=== PATIENT | male | born 1970 | race African-American/Black ===

== ENCOUNTER 2016-10-19 16:16 | Emergency (ER) | payer MEDICAID ==
[~2016-10-19] VITALS: Ht 195.6 cm; Wt 149.7 kg
[2016-10-19 17:30] LABS: Basophils # (auto) 0.1 uL; Basophils % (auto) 1.5 % (0.0-2.0); CONDITION Y; Eosinophils # (auto) 0.1 uL; Eosinophils % (auto) 1.6 % (0.0-7.0); Hematocrit 43.6 % (41.0-53.0); Hemoglobin 14.4 g/dL (13.5-17.5); Lymphocytes # (auto) 2.5 uL; Lymphocytes % (auto) 38.3 % (10.0-50.0); Mean Corpuscular Hemoglobin 29.7 pg (28.0-32.0); Mean Corpuscular Hgb Conc. 33.1 g/dL (32.0-36.0); Mean Corpuscular Volume 89.8 fL (80.0-100.0); Mean Platelet Volume 7.5 fL (7.4-10.4); Monocytes # (auto) 0.4 uL; Monocytes % (auto) 5.9 % (0.0-12.0); Neutrophils # (auto) 3.4 uL; Neutrophils % (auto) 52.7 % (37.0-80.0); Platelet Count (auto) 370 10^3/uL (140-450); Red Cell Distribution Width 16.6 % (11.6-16.0); White Blood Cell 6.5 10^3/uL (4.4-10.8)
[2016-10-19 17:52] LABS: Anion Gap 8 (5-15); Blood Urea Nitrogen 4 mg/dL (7-18); Carbon Dioxide 24 mmol/L (21-32); Chloride 105 mmol/L (98-107); Glucose 197 mg/dL (74-106); Potassium 3.7 mmol/L (3.5-5.1); Sodium 137 mmol/L (136-145)
[2016-10-19 17:53] LABS: Albumin 3.4 g/dL (3.4-5.0); Alkaline Phosphatase 86 U/L (45-117); Aspartate Aminotransferase 15 U/L (15-37); BUN/Creatinine Ratio 4.9; Bilirubin, Total 0.1 mg/dL (0.2-1.0); GFR African American 132 mL/min; GFR Non-African American 109 mL/min; Total Protein 7.7 g/dL (6.4-8.2)
[2016-10-19 17:55] LABS: Acetaminophen < 2.0 ug/mL (10-30); Salicylate 3.9 mg/dL (2.8-20.0)
[2016-10-19] MEDS ORDERED: diphenhdrAMINE HCL 25 MG CAP PO ONE (19:45)
[2016-10-19 19:58] VITALS: BP 150/98
== END 2016-10-19 20:08 | disposition home or self-care (01) ==
LOC: ER 16:16
DX: F41.9 Anxiety disorder, unspecified (principal); F20.9 Schizophrenia, unspecified
CPT/HCPCS: 36415; 80053; 80307; 80320; 80329; 85025

== ENCOUNTER 2016-11-09 12:17 | Observation (INO) | payer MEDICAID ==
[~2016-11-09] VITALS: Ht 195.6 cm; Wt 154.2 kg
[2016-11-09 13:51] LABS: Basophils # (auto) 0.1 uL; Basophils % (auto) 1.1 % (0.0-2.0); CONDITION Y; Eosinophils # (auto) 0.2 uL; Eosinophils % (auto) 2.2 % (0.0-7.0); Hematocrit 47.1 % (41.0-53.0); Hemoglobin 15.4 g/dL (13.5-17.5); Lymphocytes # (auto) 2.6 uL; Lymphocytes % (auto) 33.2 % (10.0-50.0); Mean Corpuscular Hemoglobin 29.5 pg (28.0-32.0); Mean Corpuscular Hgb Conc. 32.7 g/dL (32.0-36.0); Mean Corpuscular Volume 90.1 fL (80.0-100.0); Mean Platelet Volume 7.7 fL (7.4-10.4); Monocytes # (auto) 0.7 uL; Monocytes % (auto) 8.3 % (0.0-12.0); Neutrophils # (auto) 4.3 uL; Neutrophils % (auto) 55.2 % (37.0-80.0); Platelet Count (auto) 400 10^3/uL (140-450); Red Cell Distribution Width 16.4 % (11.6-16.0); White Blood Cell 7.9 10^3/uL (4.4-10.8)
[2016-11-09 14:13] LABS: Albumin 3.8 g/dL (3.4-5.0); BUN/Creatinine Ratio 9.9; Bilirubin, Total 0.1 mg/dL (0.2-1.0); Calcium 9.4 mg/dL (8.5-10.1); Potassium 4.1 mmol/L (3.5-5.1); Total Protein 8.7 g/dL (6.4-8.2)
[2016-11-09 14:50] LABS: INR 0.92 (0.9-1.15); Partial Thromboplastin Time 26.6 sec (22.64-33.71)
[2016-11-09 14:56] LABS: Magnesium 2.2 mg/dL (1.6-2.6)
[2016-11-09 15:49] VITALS: BP 130/91
[2016-11-09 16:11] LABS: Urine RBC None Seen /hpf (0 - 3)
[2016-11-09 16:27] LABS: Urine Bilirubin Negative (Negative); Urine Blood Negative /uL (Negative); Urine Color Yellow (Yellow); Urine Glucose 4+ mg/dL (Normal); Urine Ketone Negative (Negative); Urine Mucus FEW (None Seen); Urine Nitrite Negative (Negative); Urine Squamous Epithelial Cell FEW /hpf (<5); Urine pH 5.5 (5.0-8.0)
== END 2016-11-09 17:40 | disposition home or self-care (01) | DRG 251 ==
LOC: EDBD 12:17 → ER 12:17 → OVERFLOW 14:19 → ER 17:40
PROVIDERS: ADMIT Family Medicine; ATTEND Family Medicine
DX: R10.9 Unspecified abdominal pain (principal); E11.65 Type 2 diabetes mellitus with hyperglycemia; I10 Essential (primary) hypertension; F20.9 Schizophrenia, unspecified; F32.9 Major depressive disorder, single episode, unspecified; F41.9 Anxiety disorder, unspecified; R16.0 Hepatomegaly, not elsewhere classified
CPT/HCPCS: 36415; 71010; 74176; 80053; 81001; 82150; 83690; 83735; 85025; 85610; 85730; 99285; G0378